=== PATIENT | female | born 1975 | race Two or more races ===

== ENCOUNTER 2022-03-12 05:09 | Emergency (ER) | payer OTHER ==
[~2022-03-12] VITALS: Ht 157.5 cm; Wt 74.5 kg
[~2022-03-12 05:09] MED LIST: NOCURR
[2022-03-12 05:17] VITALS: BP 136/84
== END 2022-03-12 06:00 | disposition left against medical advice (07) ==
LOC: EMS 05:10
DX: Z53.21 Procedure and treatment not carried out due to patient leaving prior to being seen by health care provider (principal)

== ENCOUNTER 2024-03-28 03:49 | Emergency (ER) | payer OTHER ==
[~2024-03-28] VITALS: Ht 157.5 cm; Wt 86.4 kg
[2024-03-28] MEDS: SULFAMETHOX/TRIMETH DS 800-160 MG/TABLET PO ONE (04:40)
[2024-03-28] MEDS ORDERED: SULF-261 PO (04:50)
[2024-03-28 05:19] VITALS: BP 133/85; PULSE 102; RESP 20; TEMP 98; O2SAT 98
== END 2024-03-28 05:35 | disposition home or self-care (01) ==
LOC: EMS 03:50
DX: L03.311 Cellulitis of abdominal wall (principal); L02.211 Cutaneous abscess of abdominal wall; F17.210 Nicotine dependence, cigarettes, uncomplicated; I10 Essential (primary) hypertension; Z90.49 Acquired absence of other specified parts of digestive tract; Z98.51 Tubal ligation status; Z88.0 Allergy status to penicillin; Z98.890 Other specified postprocedural states
CPT/HCPCS: 99283